=== PATIENT | female | born 1965 | race Caucasian/White ===

== ENCOUNTER 2022-04-28 14:48 | Inpatient (IN) | payer OTHER ==
[2022-04-28] MEDS ORDERED: FAMOTIDINE 20 MG/50 ML IVPB 20 MG/50 ML MG IVPB ONE ×2 (17:16→17:46)
[2022-04-28] MEDS ORDERED: SODIUM CHLORIDE 0.9% 500 ML INFUS.BAG IV ONE (17:17)
[2022-04-28 19:03] LABS: CHLORIDE 99 mmol/L (98-107); SODIUM 135 mmol/L (136-145)
[2022-04-28 19:04] LABS: BASO % 0.3 % (0-2.0); EOS % 1.4 % (0-4.5); HEMATOCRIT 45.8 % (32.4-45.2); HEMOGLOBIN 15.4 GM/dL (10.7-15.3); LYMPH % 22.7 % (8-40); MCH 31.2 pg (25.7-33.7); MCHC 33.6 g/dl (32.0-36.0); MEAN CELL VOLUME 92.8 fl (80-96); MEAN PLT VOLUME 10.1 fl (7.5-11.1); MONO % 7.6 % (3.8-10.2); PLATELET COUNT 363 10^3/uL (134-434); RBC 4.93 M/mm3 (3.60-5.2); RDW 13.2 % (11.6-15.6); WHITE BLOOD COUNT 13.2 K/mm3 (4.0-10.0)
[2022-04-28 19:05] LABS: ALBUMIN 3.7 g/dl (3.4-5.0); CALCIUM 9.9 mg/dL (8.5-10.1)
[2022-04-28 19:06] LABS: BLOOD UREA NITROGEN 12.6 mg/dL (7-18); CO2 27 mmol/L (21-32); GLUCOSE,RANDOM 87 mg/dL (74-106)
[2022-04-28 19:09] LABS: CREATININE 0.8 mg/dL (0.55-1.3); SGOT/AST 41 U/L (15-37); SGPT/ALT 28 U/L (13-61)
[2022-04-28 19:10] LABS: BILIRUBIN,TOTAL 0.9 mg/dL (0.2-1); TOT PROT 7.7 g/dl (6.4-8.2)
[2022-04-28 19:11] LABS: ALK PHOS 127 U/L (45-117)
[2022-04-28 19:13] LABS: ANION GAP 9 MMOL/L (8-16); LIPASE 1690 U/L (73-393)
[2022-04-28 21:03] LABS: EPI CELLS 6 /uL (0-25.1); HYALINE CASTS 1 /uL (0-3.1); PH,URINE 5.5 (5.0-8.0); URINE APPEARANCE CLEAR; URINE BACTERIA >9,000 /uL (0-1359); URINE BILIRUBIN NEGATIVE (NEGATIVE); URINE COLOR YELLOW; URINE GLUCOSE (UA) NEGATIVE (NEGATIVE); URINE KETONE 2+ (NEGATIVE); URINE LEUK ESTERASE TRACE (NEGATIVE); URINE NITRITE POSITIVE (NEGATIVE); URINE PROTEIN NEGATIVE (NEGATIVE); URINE RBC 3 /uL (0-23.9); URINE UROBILINOGEN 0.2 mg/dL (0.2-1.0); URINE WBC 44 /uL (0-25.8)
[2022-04-28] MEDS ORDERED: morphine CARPU-JECT 4 MG/1 ML DISP.SYRIN IVPUSH ONE (23:18)
[2022-04-28] MEDS ORDERED: LACTATED RINGERS SOLUTION 1,000 ML/1,000 ML INFUS.BAG IV STA (23:27)
[2022-04-29] MEDS ORDERED: morphine SULFATE 4 MG/ML VIAL ONE (00:25)
[2022-04-29] MEDS: LACTATED RINGERS SOLUTION 1,000 ML IV SCH ×3 (05:33→21:36)
[2022-04-29] MEDS ORDERED: NITROFURANTOIN MACROCRYSTAL 50 MG CAPSULE (FP) PO SCH ×2 (06:00→10:00)
[2022-04-29 06:35] VITALS: BMI 29.2
[2022-04-29] MEDS ORDERED: INSULIN SLIDING SCALE (NOVOLOG) 1 VIAL SQ SCH (07:00)
[2022-04-29 08:59] VITALS: RESP 18
[2022-04-29 10:18] LABS: HEMOGLOBIN 14.1 GM/dL (10.7-15.3); MCH 30.7 pg (25.7-33.7); MCHC 32.8 g/dl (32.0-36.0); MEAN CELL VOLUME 93.7 fl (80-96); MEAN PLT VOLUME 9.6 fl (7.5-11.1); PLATELET COUNT 308 10^3/uL (134-434); RBC 4.59 M/mm3 (3.60-5.2); RDW 13.2 % (11.6-15.6); WHITE BLOOD COUNT 12.2 K/mm3 (4.0-10.0)
[2022-04-29] MEDS: ENOXAPARIN NA (PORCINE) 40 MG/0.4 ML DISP.SYRIN SQ SCH (10:32)
[2022-04-29] MEDS: NICOTINE 21 MG/24 HOURS TOPICAL PATCH TD SCH (10:33)
[2022-04-29 10:48] LABS: CREATININE 0.7 mg/dL (0.55-1.3)
[2022-04-29 10:49] LABS: TOT PROT 7.1 g/dl (6.4-8.2)
[2022-04-29 10:54] LABS: MAGNESIUM 2.2 mg/dL (1.8-2.4)
[2022-04-29 11:06] LABS: CHOLESTEROL 201 mg/dL (50-200); HDL CHOLESTEROL 68 mg/dL (40-60); LDL CHOLESTEROL (ONLY SJRH) 110 mg/dL (5-100); TRIGLYCERIDES 136 mg/dL (0-150)
[2022-04-29 11:21] LABS: ALBUMIN 3.6 g/dl (3.4-5.0); BILIRUBIN,TOTAL 1.3 mg/dL (0.2-1); BLOOD UREA NITROGEN 9.2 mg/dL (7-18); CALCIUM 9.8 mg/dL (8.5-10.1); PHOSPHOROUS 3.3 mg/dL (2.5-4.9)
[2022-04-30] MEDS: LACTATED RINGERS SOLUTION 1,000 ML IV SCH (09:22)
[2022-04-30] MEDS: NICOTINE 21 MG/24 HOURS TOPICAL PATCH TD SCH (09:23)
[2022-04-30] MEDS: ENOXAPARIN NA (PORCINE) 40 MG/0.4 ML DISP.SYRIN SQ SCH (09:23)
[2022-04-30 12:16] LABS: BASO % 0.5 % (0-2.0); EOS % 1.6 % (0-4.5); HEMATOCRIT 41.5 % (32.4-45.2); LYMPH % 28.9 % (8-40); MCH 31.3 pg (25.7-33.7); MCHC 33.8 g/dl (32.0-36.0); MEAN CELL VOLUME 92.6 fl (80-96); MEAN PLT VOLUME 9.9 fl (7.5-11.1); MONO % 8.5 % (3.8-10.2); NEUT % 60.5 % (42.8-82.8); PLATELET COUNT 297 10^3/uL (134-434); RBC 4.48 M/mm3 (3.60-5.2); RDW 12.8 % (11.6-15.6); WHITE BLOOD COUNT 8.9 K/mm3 (4.0-10.0)
[2022-04-30 12:51] LABS: CALCIUM 9.8 mg/dL (8.5-10.1)
[2022-04-30 12:52] LABS: ALBUMIN 3.4 g/dl (3.4-5.0); BLOOD UREA NITROGEN 6.3 mg/dL (7-18)
[2022-04-30 12:55] LABS: CREATININE 0.6 mg/dL (0.55-1.3)
[2022-04-30 12:56] LABS: BILIRUBIN,TOTAL 0.8 mg/dL (0.2-1); TOT PROT 6.8 g/dl (6.4-8.2)
[2022-04-30] MEDS: diphenhydrAMINE HCL 25 MG CAPSULE (FP) PO PRN (15:00)
[2022-04-30] MEDS ORDERED: LACTATED RINGERS SOLUTION 1,000 ML IV SCH (20:13)
[2022-04-30] MEDS ORDERED: BENZOCAINE/MENTHOL (CHLORASEPTIC ) LOZENGE MM PRN (21:39)
[2022-05-01] MEDS: diphenhydrAMINE HCL 25 MG CAPSULE (FP) PO PRN (02:26)
[2022-05-01 02:46] VITALS: TEMP 98
[2022-05-01] MEDS: NICOTINE 21 MG/24 HOURS TOPICAL PATCH TD SCH (09:31)
[2022-05-01] MEDS: ENOXAPARIN NA (PORCINE) 40 MG/0.4 ML DISP.SYRIN SQ SCH (09:31)
[2022-05-01 10:31] LABS: BLOOD UREA NITROGEN 7.6 mg/dL (7-18); CALCIUM 9.8 mg/dL (8.5-10.1)
[2022-05-01 10:32] LABS: ALBUMIN 3.3 g/dl (3.4-5.0)
[2022-05-01 10:34] LABS: CREATININE 0.6 mg/dL (0.55-1.3)
[2022-05-01 10:36] LABS: BILIRUBIN,TOTAL 0.9 mg/dL (0.2-1); TOT PROT 6.9 g/dl (6.4-8.2)
[2022-05-01 11:10] VITALS: BP 130/70; PULSE 84
== END 2022-05-01 17:15 | disposition home or self-care (01) | DRG 439 ==
LOC: JER 14:48 → JERBED 20:54 → J6S 04-29 06:20
PROVIDERS: ADMIT Internal Medicine; ATTEND Internal Medicine
DX: K85.90 Acute pancreatitis without necrosis or infection, unspecified (principal); N39.0 Urinary tract infection, site not specified; L40.8 Other psoriasis; F10.10 Alcohol abuse, uncomplicated; F12.10 Cannabis abuse, uncomplicated; I10 Essential (primary) hypertension; D72.829 Elevated white blood cell count, unspecified; E87.5 Hyperkalemia; R21 Rash and other nonspecific skin eruption; K86.0 Alcohol-induced chronic pancreatitis; F17.200 Nicotine dependence, unspecified, uncomplicated; Z88.0 Allergy status to penicillin
CPT/HCPCS: 0241U-QW; 36415; 71046-TC-FY; 76705-TC; 80053; 80061; 81003; 82150; 83690; 83735; 84100; 84484; 85025; 85027; 87086; 93005; 93010; 99285-25

== ENCOUNTER 2022-05-17 02:55 | Inpatient (IN) | payer OTHER ==
[2022-05-17] MEDS ORDERED: SODIUM CHLORIDE 0.9% 500 ML INFUS.BAG IV ONE (03:29)
[2022-05-17] MEDS ORDERED: ACETAMINOPHEN 1000 MG/100 ML BAG IVPB ONE (04:35)
[2022-05-17] MEDS ORDERED: ACETAMINOPHEN INJECTION 100 ML IVPB ONE (04:36)
[2022-05-17 04:43] LABS: BASO % 0.5 % (0-2.0); EOS % 2.7 % (0-4.5); HEMATOCRIT 43.2 % (32.4-45.2); HEMOGLOBIN 14.5 GM/dL (10.7-15.3); LYMPH % 18.8 % (8-40); MCH 30.9 pg (25.7-33.7); MCHC 33.6 g/dl (32.0-36.0); MEAN CELL VOLUME 92.1 fl (80-96); MEAN PLT VOLUME 9.8 fl (7.5-11.1); MONO % 8.8 % (3.8-10.2); NEUT % 69.2 % (42.8-82.8); PLATELET COUNT 371 10^3/uL (134-434); RBC 4.69 M/mm3 (3.60-5.2); RDW 13.3 % (11.6-15.6); WHITE BLOOD COUNT 15.1 K/mm3 (4.0-10.0)
[2022-05-17 04:48] LABS: CALCIUM 9.5 mg/dL (8.5-10.1)
[2022-05-17 04:49] LABS: ALBUMIN 3.8 g/dl (3.4-5.0); BLOOD UREA NITROGEN 13.1 mg/dL (7-18)
[2022-05-17 04:51] LABS: CREATININE 0.8 mg/dL (0.55-1.3)
[2022-05-17 04:52] LABS: TOT PROT 7.2 g/dl (6.4-8.2)
[2022-05-17 04:54] LABS: BILIRUBIN,TOTAL 0.3 mg/dL (0.2-1)
[2022-05-17] MEDS ORDERED: morphine CARPU-JECT 4 MG/1 ML DISP.SYRIN IVPUSH ONE (04:56)
[2022-05-17] MEDS ORDERED: LACTATED RINGERS SOLUTION 1,000 ML/1,000 ML INFUS.BAG IV SCH (05:45)
[2022-05-17] MEDS ORDERED: ONDANSETRON 4 MG/2 ML VIAL IVPB PRN ×2 (08:21→20:30)
[2022-05-17] MEDS ORDERED: ONDANSETRON 4 MG/2 ML VIAL IVPB STA (08:27)
[2022-05-17] MEDS ORDERED: METOCLOPRAMIDE HCL INJECTION 10 MG/2 ML VIAL IVPB SCH (08:30)
[2022-05-17] MEDS: LACTATED RINGERS SOLUTION 1,000 ML/1,000 ML INFUS.BAG IV SCH (09:16)
[2022-05-17] MEDS ORDERED: PANTOPRAZOLE SODIUM 40 MG VIAL IVPB SCH (10:00)
[2022-05-17] MEDS ORDERED: PANTOPRAZOLE SODIUM 40 MG in SODIUM CHLORIDE 100 ML IVPB SCH (10:00)
[2022-05-17] MEDS ORDERED: PANTOPRAZOLE SODIUM 40 MG VIAL IVPUSH SCH (10:00)
[2022-05-17 10:36] VITALS: BMI 28.7
[2022-05-17] MEDS: ONDANSETRON 4 MG/2 ML VIAL IVPB SCH ×3 (11:13→18:04)
[2022-05-17] MEDS: PANTOPRAZOLE SODIUM 40 MG VIAL IVPUSH SCH ×2 (11:33→21:28)
[2022-05-17] MEDS: METOCLOPRAMIDE HCL INJECTION 10 MG/2 ML VIAL IVPB SCH (18:04)
[2022-05-17] MEDS: morphine SULFATE 4 MG/ML VIAL IVPUSH PRN (20:37)
[2022-05-18] MEDS: METOCLOPRAMIDE HCL INJECTION 10 MG/2 ML VIAL IVPB SCH ×3 (01:23→17:44)
[2022-05-18] MEDS: LACTATED RINGERS SOLUTION 1,000 ML/1,000 ML INFUS.BAG IV SCH ×2 (04:27→21:57)
[2022-05-18] MEDS: morphine SULFATE 4 MG/ML VIAL IVPUSH PRN ×2 (09:26→14:39)
[2022-05-18] MEDS: PANTOPRAZOLE SODIUM 40 MG VIAL IVPUSH SCH ×2 (09:26→21:54)
[2022-05-18 10:05] LABS: BASO % 0.8 % (0-2.0); EOS % 2.2 % (0-4.5); HEMATOCRIT 42.1 % (32.4-45.2); HEMOGLOBIN 13.8 GM/dL (10.7-15.3); LYMPH % 25.4 % (8-40); MCH 30.6 pg (25.7-33.7); MCHC 32.8 g/dl (32.0-36.0); MEAN CELL VOLUME 93.4 fl (80-96); MEAN PLT VOLUME 10.2 fl (7.5-11.1); MONO % 7.3 % (3.8-10.2); NEUT % 64.3 % (42.8-82.8); PLATELET COUNT 365 10^3/uL (134-434); RBC 4.51 M/mm3 (3.60-5.2); RDW 13.1 % (11.6-15.6)
[2022-05-18 10:36] LABS: ALBUMIN 3.6 g/dl (3.4-5.0); BLOOD UREA NITROGEN 3.9 mg/dL (7-18); CALCIUM 9.6 mg/dL (8.5-10.1)
[2022-05-18 10:39] LABS: CREATININE 0.6 mg/dL (0.55-1.3)
[2022-05-18 10:41] LABS: BILIRUBIN,TOTAL 0.8 mg/dL (0.2-1); TOT PROT 6.7 g/dl (6.4-8.2)
[2022-05-18] MEDS: ACETAMINOPHEN 1000 MG/100 ML BAG IVPB PRN (18:48)
[2022-05-19] MEDS: ACETAMINOPHEN 1000 MG/100 ML BAG IVPB PRN ×3 (01:27→16:39)
[2022-05-19] MEDS: METOCLOPRAMIDE HCL INJECTION 10 MG/2 ML VIAL IVPB SCH ×3 (02:48→17:12)
[2022-05-19] MEDS: LACTATED RINGERS SOLUTION 1,000 ML/1,000 ML INFUS.BAG IV SCH ×2 (10:30→15:03)
[2022-05-19] MEDS: PANTOPRAZOLE SODIUM 40 MG VIAL IVPUSH SCH ×2 (10:33→21:50)
[2022-05-19] MEDS: ALPRAZolam 0.25 MG TABLET PO ONE ×2 (10:33→18:47)
[2022-05-19] MEDS ORDERED: CEFTRIAXONE 1 GM in DEXTROSE 5%-WATER 100 ML IVPB SCH (12:30)
[2022-05-19 12:35] LABS: BASO % 0.6 % (0-2.0); EOS % 2.3 % (0-4.5); HEMATOCRIT 38.6 % (32.4-45.2); HEMOGLOBIN 12.8 GM/dL (10.7-15.3); LYMPH % 17.5 % (8-40); MCH 30.8 pg (25.7-33.7); MCHC 33.3 g/dl (32.0-36.0); MEAN CELL VOLUME 92.7 fl (80-96); MEAN PLT VOLUME 9.8 fl (7.5-11.1); MONO % 6.5 % (3.8-10.2); NEUT % 73.1 % (42.8-82.8); PLATELET COUNT 293 10^3/uL (134-434); RBC 4.16 M/mm3 (3.60-5.2); RDW 12.9 % (11.6-15.6); WHITE BLOOD COUNT 12.9 K/mm3 (4.0-10.0)
[2022-05-19 13:02] LABS: CALCIUM 8.9 mg/dL (8.5-10.1)
[2022-05-19 13:03] LABS: BLOOD UREA NITROGEN 4.1 mg/dL (7-18)
[2022-05-19 13:05] LABS: CREATININE 0.5 mg/dL (0.55-1.3)
[2022-05-19] MEDS ORDERED: ALPRAZolam 1 MG TABLET PO ONE ×2 (14:10→18:45)
[2022-05-19] MEDS: CEFTRIAXONE 1 GM in DEXTROSE 5%-WATER 100 ML IVPB SCH (15:08)
[2022-05-19] MEDS ORDERED: ALPRAZolam 0.25 MG TABLET PO ONE (18:45)
[2022-05-19] MEDS: morphine SULFATE 4 MG/ML VIAL IVPUSH PRN (23:17)
[2022-05-20] MEDS: METOCLOPRAMIDE HCL INJECTION 10 MG/2 ML VIAL IVPB SCH ×3 (01:22→17:11)
[2022-05-20] MEDS: ACETAMINOPHEN 1000 MG/100 ML BAG IVPB PRN ×3 (01:26→17:10)
[2022-05-20] MEDS: LACTATED RINGERS SOLUTION 1,000 ML/1,000 ML INFUS.BAG IV SCH (08:58)
[2022-05-20] MEDS: PANTOPRAZOLE SODIUM 40 MG VIAL IVPUSH SCH ×2 (09:07→23:25)
[2022-05-20] MEDS: CEFTRIAXONE 1 GM in DEXTROSE 5%-WATER 100 ML IVPB SCH (09:07)
[2022-05-20 11:46] LABS: PH,URINE 5.5 (5.0-8.0); URINE APPEARANCE CLEAR; URINE BILIRUBIN NEGATIVE (NEGATIVE); URINE COLOR YELLOW; URINE GLUCOSE (UA) NEGATIVE (NEGATIVE); URINE KETONE 4+ (NEGATIVE); URINE LEUK ESTERASE NEGATIVE (NEGATIVE); URINE NITRITE NEGATIVE (NEGATIVE); URINE PROTEIN TRACE (NEGATIVE)
[2022-05-20 12:59] LABS: BASO % 0.5 % (0-2.0); EOS % 2.5 % (0-4.5); HEMATOCRIT 40.1 % (32.4-45.2); HEMOGLOBIN 13.5 GM/dL (10.7-15.3); LYMPH % 14.9 % (8-40); MCH 31.3 pg (25.7-33.7); MCHC 33.6 g/dl (32.0-36.0); MEAN CELL VOLUME 93.3 fl (80-96); MEAN PLT VOLUME 9.3 fl (7.5-11.1); MONO % 6.9 % (3.8-10.2); NEUT % 75.2 % (42.8-82.8); PLATELET COUNT 299 10^3/uL (134-434); WHITE BLOOD COUNT 14.5 K/mm3 (4.0-10.0)
[2022-05-20 13:26] LABS: BLOOD UREA NITROGEN 5.1 mg/dL (7-18); CALCIUM 8.8 mg/dL (8.5-10.1)
[2022-05-20 13:29] LABS: CREATININE 0.5 mg/dL (0.55-1.3)
[2022-05-20 18:13] VITALS: RESP 18
[2022-05-21] MEDS: ACETAMINOPHEN 1000 MG/100 ML BAG IVPB PRN ×3 (01:05→16:29)
[2022-05-21] MEDS: METOCLOPRAMIDE HCL INJECTION 10 MG/2 ML VIAL IVPB SCH ×3 (01:54→19:03)
[2022-05-21] MEDS: LACTATED RINGERS SOLUTION 1,000 ML/1,000 ML INFUS.BAG IV SCH (08:47)
[2022-05-21] MEDS: PANTOPRAZOLE SODIUM 40 MG VIAL IVPUSH SCH ×2 (09:04→21:32)
[2022-05-21] MEDS: CEFTRIAXONE 1 GM in DEXTROSE 5%-WATER 100 ML IVPB SCH (09:04)
[2022-05-21 09:47] LABS: BASO % 0.6 % (0-2.0); EOS % 3.3 % (0-4.5); HEMATOCRIT 39.8 % (32.4-45.2); HEMOGLOBIN 12.8 GM/dL (10.7-15.3); LYMPH % 15.7 % (8-40); MCH 30.2 pg (25.7-33.7); MCHC 32.2 g/dl (32.0-36.0); MEAN CELL VOLUME 93.9 fl (80-96); MEAN PLT VOLUME 9.9 fl (7.5-11.1); MONO % 7.7 % (3.8-10.2); NEUT % 72.7 % (42.8-82.8); PLATELET COUNT 321 10^3/uL (134-434); RBC 4.23 M/mm3 (3.60-5.2); WHITE BLOOD COUNT 13.4 K/mm3 (4.0-10.0)
[2022-05-21 10:05] LABS: BLOOD UREA NITROGEN 4.5 mg/dL (7-18); CALCIUM 8.8 mg/dL (8.5-10.1)
[2022-05-21 10:39] LABS: CREATININE 0.5 mg/dL (0.55-1.3)
[2022-05-21] MEDS: LIPASE/PROTEASE/AMYLASE 36,000 UNIT CAPSULE PO SCH (18:26)
[2022-05-21] MEDS ORDERED: ALPRAZolam 0.25 MG TABLET PO ONE (19:00)
[2022-05-22] MEDS: ACETAMINOPHEN 1000 MG/100 ML BAG IVPB PRN ×2 (00:39→11:28)
[2022-05-22] MEDS: METOCLOPRAMIDE HCL INJECTION 10 MG/2 ML VIAL IVPB SCH ×3 (02:26→17:34)
[2022-05-22] MEDS: LACTATED RINGERS SOLUTION 1,000 ML/1,000 ML INFUS.BAG IV SCH ×3 (02:41→20:55)
[2022-05-22 08:33] LABS: BASO % 0.7 % (0-2.0); EOS % 3.6 % (0-4.5); HEMATOCRIT 42.8 % (32.4-45.2); HEMOGLOBIN 13.8 GM/dL (10.7-15.3); LYMPH % 19.2 % (8-40); MCH 30.4 pg (25.7-33.7); MCHC 32.4 g/dl (32.0-36.0); MEAN PLT VOLUME 9.2 fl (7.5-11.1); MONO % 7.9 % (3.8-10.2); NEUT % 68.6 % (42.8-82.8); PLATELET COUNT 334 10^3/uL (134-434); RBC 4.55 M/mm3 (3.60-5.2); RDW 13.2 % (11.6-15.6); WHITE BLOOD COUNT 12.4 K/mm3 (4.0-10.0)
[2022-05-22] MEDS ORDERED: ALPRAZolam 0.25 MG TABLET PO NR (08:53)
[2022-05-22 08:56] LABS: CHLORIDE 104 mmol/L (98-107); SODIUM 139 mmol/L (136-145)
[2022-05-22 09:07] LABS: ANION GAP 15 MMOL/L (8-16); CALCIUM 8.9 mg/dL (8.5-10.1); CO2 21 mmol/L (21-32); CREATININE 0.4 mg/dL (0.55-1.3); GLUCOSE,RANDOM 84 mg/dL (74-106); LIPASE 989 U/L (73-393)
[2022-05-22 09:08] LABS: BLOOD UREA NITROGEN 2.4 mg/dL (7-18)
[2022-05-22] MEDS: LIPASE/PROTEASE/AMYLASE 36,000 UNIT CAPSULE PO SCH ×3 (09:08→17:33)
[2022-05-22] MEDS: CEFTRIAXONE 1 GM in DEXTROSE 5%-WATER 100 ML IVPB SCH (11:11)
[2022-05-22] MEDS: PANTOPRAZOLE SODIUM 40 MG VIAL IVPUSH SCH ×2 (11:11→22:50)
[2022-05-22 21:55] LABS: PH,URINE 5.5 (5.0-8.0); URINE APPEARANCE CLEAR; URINE BILIRUBIN NEGATIVE (NEGATIVE); URINE COLOR YELLOW; URINE GLUCOSE (UA) NEGATIVE (NEGATIVE); URINE KETONE 3+ (NEGATIVE); URINE LEUK ESTERASE NEGATIVE (NEGATIVE); URINE NITRITE NEGATIVE (NEGATIVE); URINE PROTEIN NEGATIVE (NEGATIVE); URINE UROBILINOGEN 0.2 mg/dL (0.2-1.0)
[2022-05-23] MEDS: ACETAMINOPHEN 1000 MG/100 ML BAG IVPB PRN (02:14)
[2022-05-23] MEDS: METOCLOPRAMIDE HCL INJECTION 10 MG/2 ML VIAL IVPB SCH ×3 (02:32→18:17)
[2022-05-23 09:25] LABS: BASO % 0.6 % (0-2.0); EOS % 3.7 % (0-4.5); HEMATOCRIT 40.5 % (32.4-45.2); HEMOGLOBIN 13.1 GM/dL (10.7-15.3); LYMPH % 26.3 % (8-40); MCH 30.2 pg (25.7-33.7); MCHC 32.4 g/dl (32.0-36.0); MEAN CELL VOLUME 93.1 fl (80-96); MEAN PLT VOLUME 8.9 fl (7.5-11.1); MONO % 7.3 % (3.8-10.2); NEUT % 62.1 % (42.8-82.8); PLATELET COUNT 289 10^3/uL (134-434); RBC 4.36 M/mm3 (3.60-5.2); RDW 13.3 % (11.6-15.6); WHITE BLOOD COUNT 8.8 K/mm3 (4.0-10.0)
[2022-05-23 10:00] LABS: BLOOD UREA NITROGEN 3.3 mg/dL (7-18)
[2022-05-23] MEDS ORDERED: predniSONE 20 MG TABLET (UD) PO ONE (10:00)
[2022-05-23 10:02] LABS: CALCIUM 8.8 mg/dL (8.5-10.1); CREATININE 0.5 mg/dL (0.55-1.3); URIC ACID 5.9 mg/dL (2.6-7.2)
[2022-05-23] MEDS: LIPASE/PROTEASE/AMYLASE 36,000 UNIT CAPSULE PO SCH ×3 (10:45→17:49)
[2022-05-23] MEDS: PANTOPRAZOLE SODIUM 40 MG VIAL IVPUSH SCH ×2 (10:47→22:12)
[2022-05-23] MEDS: LACTATED RINGERS SOLUTION 1,000 ML/1,000 ML INFUS.BAG IV SCH (11:19)
[2022-05-23] MEDS: CEFTRIAXONE 1 GM in DEXTROSE 5%-WATER 100 ML IVPB SCH (11:20)
[2022-05-23] MEDS: SODIUM CHLORIDE 1,000 ML IV SCH (12:07)
[2022-05-24] MEDS: diphenhydrAMINE HCL 25 MG CAPSULE (FP) PO PRN ×2 (00:40→22:47)
[2022-05-24] MEDS: METOCLOPRAMIDE HCL INJECTION 10 MG/2 ML VIAL IVPB SCH ×3 (02:11→18:01)
[2022-05-24] MEDS: ACETAMINOPHEN 500 MG TABLET (FP) PO PRN ×2 (02:50→10:49)
[2022-05-24] MEDS: SODIUM CHLORIDE 1,000 ML IV SCH ×2 (03:14→18:01)
[2022-05-24 09:26] LABS: BASO % 0.6 % (0-2.0); EOS % 1.7 % (0-4.5); HEMOGLOBIN 12.1 GM/dL (10.7-15.3); LYMPH % 30.1 % (8-40); MCH 31.2 pg (25.7-33.7); MCHC 33.6 g/dl (32.0-36.0); MEAN PLT VOLUME 9.1 fl (7.5-11.1); MONO % 6.9 % (3.8-10.2); NEUT % 60.7 % (42.8-82.8); PLATELET COUNT 285 10^3/uL (134-434); RBC 3.87 M/mm3 (3.60-5.2); RDW 13.2 % (11.6-15.6); WHITE BLOOD COUNT 12.6 K/mm3 (4.0-10.0)
[2022-05-24 09:54] LABS: BLOOD UREA NITROGEN 5.8 mg/dL (7-18)
[2022-05-24 09:56] LABS: CALCIUM 8.7 mg/dL (8.5-10.1)
[2022-05-24 09:57] LABS: CREATININE 0.5 mg/dL (0.55-1.3)
[2022-05-24] MEDS ORDERED: predniSONE 5 MG TABLET (UD) PO ONE (10:00)
[2022-05-24] MEDS: LIPASE/PROTEASE/AMYLASE 36,000 UNIT CAPSULE PO SCH ×3 (10:40→18:02)
[2022-05-24] MEDS: PANTOPRAZOLE SODIUM 40 MG VIAL IVPUSH SCH ×2 (10:41→21:32)
[2022-05-24 21:10] VITALS: BP 145/87; PULSE 89; TEMP 98.5
[2022-05-25] MEDS ORDERED: predniSONE 5 MG TABLET (UD) PO ONE (10:00)
[2022-05-25] MEDS ORDERED: predniSONE 20 MG TABLET (UD) PO ONE (10:00)
[2022-05-26] MEDS ORDERED: predniSONE 20 MG, predniSONE 10 MG, predniSONE 5 MG PO ONE (10:00)
[2022-05-26 20:07] LABS: ATYPICAL pANCA <1:20 titer (Neg:<1:20); C-ANCA <1:20 titer (Neg:<1:20)
[2022-05-27] MEDS ORDERED: predniSONE 10 MG TABLET (UD) PO ONE (10:00)
[2022-05-29] MEDS ORDERED: predniSONE 20 MG TABLET (UD) PO ONE (10:00)
[2022-05-30] MEDS ORDERED: predniSONE 10 MG, predniSONE 5 MG PO ONE (10:00)
[2022-05-31] MEDS ORDERED: predniSONE 10 MG TABLET (UD) PO ONE (10:00)
[2022-06-01] MEDS ORDERED: predniSONE 5 MG TABLET (UD) PO ONE (10:00)
== END 2022-05-25 01:10 | disposition short-term general hospital (02) | DRG 440 ==
LOC: JER 02:55 → JERBED 05:27 → J5S 10:10
PROVIDERS: ADMIT Family Medicine; ATTEND Family Medicine
PROC: 0DB68ZX Excision of Stomach, Via Natural or Artificial Opening Endoscopic, Diagnostic (ICD-10-PCS; 2022-05-20)
PROC: 0DB58ZX Excision of Esophagus, Via Natural or Artificial Opening Endoscopic, Diagnostic (ICD-10-PCS; principal; 2022-05-20 13:30)
DX: K85.90 Acute pancreatitis without necrosis or infection, unspecified (principal); L40.9 Psoriasis, unspecified; R10.13 Epigastric pain; K31.9 Disease of stomach and duodenum, unspecified; K44.9 Diaphragmatic hernia without obstruction or gangrene; K29.60 Other gastritis without bleeding; E86.0 Dehydration
CPT/HCPCS: 36415; 71045-TC-FY; 74177-TC; 74182-TC; 76700-TC; 78226-TC; 80048; 80053; 80061; 81003; 82150; 82787; 83520; 83690; 83735; 84484; 84550; 85025; 85651; 86038; 86160; 86225; 86256; 86780; 88305-TC; 93005; 93010; A9537; C9803-CS; Q9967; U0003; U0005